=== PATIENT | male | born 1955 | race Caucasian/White ===

== ENCOUNTER 2023-10-27 10:28 | Emergency (ER) | payer MEDICARE, OTHER, SELFPAY ==
[2023-10-27 10:33] VITALS: BP 139/78
--- NOTE | 2023-10-27 11:35 | ED.GENMED ---
History of Present Illness
General
Chief Complaint: Headache
Source: patient
Exam Limitations: none
Time Seen by Provider: 10/27/23 11:15
Travel History
Have you had any contact with someone who has COVID-19?: No
Do you have any symptoms of coronavirus? Fever > 100 degrees, chills, cough, shortness of breath, sore throat, loss of taste or smell, muscle aches, or headache?: No
History of Present Illness
History of Present Illness:
See MDM
Past History
Past History
ED Past Medical History: HTN and Hypercholesterolemia
ED Past Surgical History: Urological
Social History
Tobacco: Non-smoker
Alcohol: None
Phy Exam
Physical Exam
Physical Exam:
See MDM
Scores
[id number] Score for Afib Stroke Risk
Age in Years (65=0, 65-74=1, >/=75=2): 65-74
Sex (Female=+1): Male
Congestive Heart Failure History (Yes=+1): No
Hypertension History (Yes=+1): Yes
Stroke/TIA/Thromboembolism History (Yes=+2): No
Vascular Disease History (Yes=+1): No
Diabetes Mellitus (Yes=+1): No
Score: 2
Anticoagulation Recommendations: Recommend anticoagulation (as validated in nonvalvular fib)
Course
Orders/Labs/Results
Orders:
Orders
10/27/23 10:35
Electrocardiogram (*1) Urgent
Reason for Study: Atrial Fibrillation
10/27/23 10:36
EKG- Treatment ONCE
10/27/23 11:31
CT Head W/o Iv Contrast Urgent
Comment:
Reason For Exam: headache
10/27/23 11:42
Complete Blood Count/With Diff Urgent
Comprehensive Metabolic Panel Urgent
Magnesium Urgent
TSH Reflex To Free T4 Urgent
10/27/23 13:28
Metoprolol Xl [Toprol Xl] 25 mg PO NOW STA
Abnormal Lab Results
10/27/23
11:42
RBC 4.44 L 10^6/uL
(4.70-6.10)
Monocytes % 10.6 H %
(1.7-9.3)
BUN 21 H mg/dl
(9-20)
Creatinine 0.6 L mg/dL
(0.7-1.3)
Glucose 105 H mg/dl
(70-99)
10/27/23 11:42
10/27/23 11:42
Vital Signs
Initial and Last Documented VS:
Initial Vital Signs
Temp Pulse Resp BP Pulse Ox
98.0 F 84 16 139/78 98
10/27/23 10:33 10/27/23 10:33 10/27/23 10:33 10/27/23 10:33 10/27/23 10:33
Last Documented Vital Signs
Temp Pulse Resp BP Pulse Ox
98.0 F 84 16 139/78 98
10/27/23 10:33 10/27/23 10:33 10/27/23 10:33 10/27/23 10:33 10/27/23 10:33
MDM/Problems Addressed
Differential Diagnosis Includes:
HPI and MDM Narrative:
68-year-old male presenting with intermittent A-fib. Patient states his watch keeps alerting him of A-fib, sometimes going as fast as 150 bpm. Patient denies any chest pain, shortness of breath or palpitations. He denies any prior history of
A-fib or cardiac issues. Patient also complaining of headache. He describes a bandlike distribution around his head that goes down his neck. 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
We discussed his headache is likely tension related to painting and looking up and strain on his trapezius.
In regards to his A-fib, he showed me the EKG tracing on his phone which does correlate to A-fib. Will discuss case with cardiology
Physical exam
General: Well appearing and non-toxic
HEENT: protecting airway
Neck: Mild trapezial strain, supple
CV: No evidence of cyanosis. Regular rate and rhythm
Resp: No accessory muscle use
Abd: Non-distended
Extremities: No deformities
Neuro: alert
Psych: Normal affect
Skin: Intact
Problems Addressed including Acute and Chronic Conditions affecting care:
1. Headache
Acuity: acute
Prognosis: stable
Details: Likely tension headache. Given age and complaint, will obtain CT head
2. New onset A-fib
Acuity: acute
Prognosis: stable
Details: His A-fib is paroxysmal. Current EKG is sinus rhythm. Will discuss case with cardiology
Updates
CT head negative and blood work without clinical significance. I did curbside cardiology who indicated that it is not unreasonable to start beta-dillon and Eliquis. I discussed this with patient and we discussed starting Eliquis now awaiting to
see cardiology. Since his symptoms are fleeting, patient will wait until seeing cardiology to discuss blood thinner. Patient started on Toprol
Differential Diagnosis (but not limited to): New onset A-fib, dehydration, hyperthyroidism, electrolyte abnormality, tension headache
Testing considered: D-dimer
Drug therapy (if applicable): OTC meds, please see d/c instruction regarding Rx drugs
Amount and/or Complexity of Data Reviewed
Clinical info obtained from: Patient
External data reviewed: N/A
Labs I independently reviewed (but not limited to): Electrolytes within normal limits
Radiology: The CT scan was personally and independently reviewed. In addition, official CT report reviewed.
Pulse Ox: not hypoxic
EKG independently reviewed: sinus rhythm, normal axis, no STEMI
Hardware Technician: N/A
Critical Care: N/A
Risk of Complication:
Social Determinants of health: Good social support
Discussed with other providers: Cardiology
Escalation of Care includes Admit/Obs: After being observed in the Emergency Department, pt stable for discharge.
Occasional wrong word or 'sound a like' substitutions may have occurred due to the inherent limitations of voice recognition software. Read the chart carefully and recognize, using context, where substitutions have occurred.
*Critical Care Note
Total Time (30-74mins, 75-104mins- exclusive of procedures): Not Applicable
ED Attending Note
-
Portions of this chart may have been created with voice recognition software.� Occasional wrong word or��sound alike� substitutions may have occurred due to the inherent limitations of voice recognition software.
Discharge Plan
Departure
Patient Disposition: Home (Routine Discharge)
Date of Disposition: 10/27/23
Time of Disposition: 13:30
Patient with high blood pressure during this ER visit?: Yes
Discharge Problem:
A-fib
Instructions: Chest Pain CBC Follow Up, BLOOD PRESSURE
Prescriptions:
New
metoprolol succinate [Toprol XL] 25 mg tablet extended release 24 hr
25 mg PO DAILY Qty: 30 0RF
Referrals:
Will Corey MD [Family Provider] -
Cortez Smith MD [Active] -
Activity Restrictions/Additional Instructions:
Please return for any worsening symptoms.
You may return at any time if you have further concerns.
Please follow up with your doctor at the first available appointment, preferably this week.
You were placed on the cardiac callback tracker. Someone from their office should call you in the next few days. If you do not hear from them in the next few days, please give them a call.
Thank you for choosing [facility].
Interventions
Interventions:
*Risk Screen - Suicide Last Done: 10/27/23 11:09
*Neglect/Abuse Screening Last Done: 10/27/23 11:09
*ED COVID-19 Vaccine History Last Done: 10/27/23 10:33
ED- Neurological Assessment Last Done: 10/27/23 11:45
[2023-10-27 11:50] LABS: % Basophils 0.5 % (0-2); % Eosinophils 2.7 % (0-6); % Immature Granulocytes 0.2 % (0-0.5); % Monocytes 10.6 % (1.7-9.3); Absolute Eosinophils 0.2 10^3/uL (0-0.7); Absolute Lymphocytes 1.3 10^3/uL (1.2-3.4); Absolute Monocytes 0.6 10^3/uL (0.1-0.6); Absolute Neutrophils 3.5 10^3/uL (1.4-6.5); Hematocrit 39.6 % (39.0-52.0); Hemoglobin 13.7 g/dL (13.0-18.0); Mean Corp Hgb Conc. 34.6 g/dL (33.0-37.0); Mean Corpuscular Hgb 30.9 pg (27.0-31.0); Mean Corpuscular Volume 89.2 fL (80.0-94.0); Mean Platelet Volume 8.9 fL (7.4-10.4); Nucleated Red Blood Cells % 0 % (-); Platelet Count 224 10^3/uL (130-400); Red Blood Cell Count 4.44 10^6/uL (4.70-6.10); Red Cell Dist. Width 13.2 % (11.5-14.5); White Blood Cell Count 5.6 10^3/uL (4.8-10.8)
[2023-10-27 12:09] LABS: ALT (SGPT) 31 U/L (0-50); AST (SGOT) 39 U/L (17-59); Albumin 3.7 g/dl (3.5-5.0); Alkaline Phosphatase 79 U/L (38-126); Blood Urea Nitrogen 21 mg/dl (9-20); Calcium 9.6 mg/dl (8.4-10.2); Carbon Dioxide 26 mmol/L (22-30); Chloride 102 mmol/L (98-107); Glucose 105 mg/dl (70-99); Magnesium 1.9 mg/dl (1.6-2.3); Potassium 4.3 mmol/L (3.5-5.1); Sodium 135 mmol/L (135-145); Total Bilirubin 0.7 mg/dl (0.2-1.3); Total Protein 6.5 g/dl (6.3-8.2); eGFR > 60.00
[2023-10-27 12:36] LABS: TSH Reflex To Free T4 2.04 uIU/ml (0.47-4.68)
[2023-10-27] MEDS: TOPROL XL 25 MG PO (13:31)
== END 2023-10-27 13:40 | disposition home or self-care (01) ==
LOC: EMR 10:28
PROVIDERS: EMERGENCY PHYSICIAN Student in an Organized Health Care Education/Training Program; FAMILY PHYSICIAN Internal Medicine
DX: I48.0 Paroxysmal atrial fibrillation (principal); R51.9 Headache, unspecified; I10 Essential (primary) hypertension; E78.00 Pure hypercholesterolemia, unspecified
CPT/HCPCS: 99284; 70450; 80053; 83735; 84443; 85025; 93005

== ENCOUNTER → 2023-11-19 12:31 | Outpatient (REF) | payer MEDICARE, OTHER, SELFPAY | LOC: DHCBC HW 12:31 | PROVIDERS: ATTENDING PHYSICIAN Internal Medicine Cardiovascular Disease; FAMILY PHYSICIAN Internal Medicine | DX: I48.0 Paroxysmal atrial fibrillation (principal) | CPT/HCPCS: 93306 ==

== ENCOUNTER → 2024-11-23 07:02 | Outpatient (REF) | payer MEDICARE, OTHER, SELFPAY | LOC: MRI 3T 07:02 | PROVIDERS: ATTENDING PHYSICIAN Podiatrist Foot & Ankle Surgery; FAMILY PHYSICIAN Internal Medicine | DX: M19.071 Primary osteoarthritis, right ankle and foot (principal); S93.621A Sprain of tarsometatarsal ligament of right foot, initial encounter | CPT/HCPCS: 73718 ==